=== PATIENT | female | born 1980 | race Caucasian/White ===

== ENCOUNTER → 2023-07-09 09:59 | Outpatient (BNVA) | payer OTHER, SELFPAY | PROVIDERS: Visit Provider Internal Medicine Rheumatology | DX: R21 Rash and other nonspecific skin eruption (principal); L40.9 Psoriasis, unspecified; Z79.899 Other long term (current) drug therapy; M19.90 Unspecified osteoarthritis, unspecified site; M45.6 Ankylosing spondylitis lumbar region; Z11.59 Encounter for screening for other viral diseases; R76.8 Other specified abnormal immunological findings in serum; Z11.1 Encounter for screening for respiratory tuberculosis; M47.894 Other spondylosis, thoracic region; M47.898 Other spondylosis, sacral and sacrococcygeal region; M25.50 Pain in unspecified joint | CPT/HCPCS: 36415; 72040; 72072; 72100; 72202; 73630; 80076; 82306; 82565; 85025; 85651; 86140; 86160; 86162; 86200; 86235; 86255; 86376; 86431; 86480; 86704; 86803; 86812; 87340; 99204 ==

== ENCOUNTER → 2023-07-17 12:50 | Outpatient (BNVA) | payer OTHER, SELFPAY | PROVIDERS: Visit Provider Nurse Practitioner Family | DX: L30.9 Dermatitis, unspecified (principal); L98.1 Factitial dermatitis; L08.9 Local infection of the skin and subcutaneous tissue, unspecified | CPT/HCPCS: 11104; 99204 ==

== ENCOUNTER → 2023-07-29 13:45 | Outpatient (BNVA) | payer OTHER, SELFPAY | PROVIDERS: Visit Provider Nurse Practitioner Family | DX: L23.89 Allergic contact dermatitis due to other agents (principal) | CPT/HCPCS: 99214 ==

== ENCOUNTER → 2023-08-28 09:10 | Outpatient (BNVA) | payer OTHER, SELFPAY | PROVIDERS: Visit Provider Nurse Practitioner Family | DX: L23.89 Allergic contact dermatitis due to other agents (principal); L20.89 Other atopic dermatitis | CPT/HCPCS: 99214 ==

== ENCOUNTER → 2024-02-18 14:49 | Outpatient (BNVA) | payer OTHER, SELFPAY | PROVIDERS: Visit Provider Nurse Practitioner Family | DX: L23.89 Allergic contact dermatitis due to other agents (principal); L20.89 Other atopic dermatitis; L26 Exfoliative dermatitis | CPT/HCPCS: 99214 ==

== ENCOUNTER → 2024-03-01 13:00 | Outpatient (BNVA) | payer OTHER, SELFPAY | PROVIDERS: Visit Provider Dermatology | DX: L26 Exfoliative dermatitis (principal); L24.9 Irritant contact dermatitis, unspecified cause; L30.1 Dyshidrosis [pompholyx]; L23.9 Allergic contact dermatitis, unspecified cause | CPT/HCPCS: 95044; 99213 ==

== ENCOUNTER → 2024-03-03 12:46 | Outpatient (BNVA) | payer OTHER, SELFPAY | PROVIDERS: Visit Provider Dermatology | DX: L23.9 Allergic contact dermatitis, unspecified cause (principal) | CPT/HCPCS: 99213 ==

== ENCOUNTER → 2024-03-04 11:24 | Outpatient (BNVA) | payer OTHER, SELFPAY | PROVIDERS: Visit Provider Internal Medicine Rheumatology | DX: R76.8 Other specified abnormal immunological findings in serum (principal); Z79.899 Other long term (current) drug therapy; R21 Rash and other nonspecific skin eruption; M06.041 Rheumatoid arthritis without rheumatoid factor, right hand; M06.042 Rheumatoid arthritis without rheumatoid factor, left hand; Z71.85 Encounter for immunization safety counseling | CPT/HCPCS: 36415; 80076; 82565; 85025; 85651; 86140; 99214 ==

== ENCOUNTER → 2024-03-08 13:39 | Outpatient (BNVA) | payer OTHER, SELFPAY | PROVIDERS: Visit Provider Dermatology | DX: L23.9 Allergic contact dermatitis, unspecified cause (principal) | CPT/HCPCS: 99213 ==

== ENCOUNTER → 2024-06-17 10:57 | Outpatient (BNVA) | payer OTHER, SELFPAY | PROVIDERS: Visit Provider Internal Medicine Rheumatology | DX: R76.8 Other specified abnormal immunological findings in serum (principal); R21 Rash and other nonspecific skin eruption; M06.041 Rheumatoid arthritis without rheumatoid factor, right hand; M06.042 Rheumatoid arthritis without rheumatoid factor, left hand; Z79.899 Other long term (current) drug therapy; Z71.85 Encounter for immunization safety counseling | CPT/HCPCS: 36415; 80076; 82565; 85025; 85651; 86140; 99214 ==

== ENCOUNTER → 2025-02-08 10:42 | Outpatient (BNVA) | payer OTHER, SELFPAY | PROVIDERS: Visit Provider Internal Medicine Rheumatology | DX: R76.89 Other specified abnormal immunological findings in serum (principal); R21 Rash and other nonspecific skin eruption; M06.041 Rheumatoid arthritis without rheumatoid factor, right hand; M06.042 Rheumatoid arthritis without rheumatoid factor, left hand; Z79.899 Other long term (current) drug therapy; Z71.85 Encounter for immunization safety counseling | CPT/HCPCS: 36415; 80076; 82306; 82565; 85025; 85651; 86140; 99214 ==